=== PATIENT | female | born 1980 | race Hispanic/Latino ===

== ENCOUNTER 2016-08-04 11:22 | Emergency (ER) | payer SELFPAY ==
[2016-08-04] MEDS ORDERED: KETOROLAC TROMETHAMINE 30 MG/ML VIAL ONE (12:06)
[2016-08-04 12:08] LABS: BLOOD UREA NITROGEN 15 mg/dL (7-17); CALCIUM 9.5 mg/dL (8.4-10.2); CHLORIDE 104 mmol/L (98-107); CREATININE 0.9 mg/dL (0.5-1.0); EST GLOMERULAR FILTRATION RATE > 60 mL/min; GLUCOSE 99 mg/dL (70-100); POTASSIUM 4.1 mmol/L (3.5-5.1); SODIUM 143 mmol/L (137-145)
[2016-08-04] MEDS ORDERED: DIPHENHYDRAMINE 50 MG/ML VIAL ONE (12:38)
[2016-08-04 12:47] LABS: BASOPHILS 0.4 % (0.0-2.0); EOSINOPHILS 2.3 % (0.0-6.0); EOSINOPHILS# 0.1 X 10^3uL (0.0-0.4); HEMATOCRIT 47.2 % (36.0-48.0); HEMOGLOBIN 16.2 g/dL (12.0-16.0); LYMPHOCYTES 26.7 % (20.0-40.0); LYMPHOCYTES# 1.6 X 10^3uL (0.8-3.8); MEAN CELL VOLUME 86.5 fL (80.0-100.0); MEAN CORPUS. HGB CONCENTRATION 34.4 g/dL (32.0-36.0); MEAN CORPUSCULAR HEMOGLOBIN 29.8 pg (29.0-35.0); MEAN PLATELET VOLUME 8.1 fL (7.4-10.4); MONOCYTES 6.1 % (2.0-10.0); MONOCYTES# 0.4 X 10^3uL (0.2-1.0); NEUTROPHILS 64.5 % (54.0-75.0); RED BLOOD COUNT 5.46 X 10^6uL (4.20-6.10); RED CELL DISTRIBUTION WIDTH 12.2 % (11.5-14.5); WHITE BLOOD COUNT 6.1 X 10^3uL (3.9-10.7)
[2016-08-04] MEDS ORDERED: ACETAMINOPHEN 1,000 MG/100 ML VIAL IV ONE (14:25)
[2016-08-04] MEDS ORDERED: DEXAMETHASONE 10 MG/ML VIAL ONE (14:25)
--- NOTE | 2016-08-04 16:13 | ER PHYSICIAN DOCUMENTATION ---
Physician Documentation [facility] Name:Ambar Freeman Age:35 yrs Sex:Female :1980 Arrival Date:08/04/2016 Time:11:22 Bed3 Private MD:Puma Morales ED Misbah Scott Disposition: 08/04/16 15:16 Discharged to Home/Self Care. Impression: Cephalgia. - Condition is Good. - Discharge Instructions: HEADACHE, Unspecified. - Medical Reconciliation form form. - Follow up: Puma Morales; When: Tomorrow; Reason: Continuance of care. Follow up: Brian Levy MD; When: Tomorrow; Reason: Continuance of care. - Problem is an ongoing problem. - Symptoms are resolved. HPI: 08/04 15:11 This 35 yrs old Female presents to ER via Private Vehicle with complaints of sc Headache. 15:11 The patient complains of pain to the top of head and forehead. The patient describes sc the headache as aching, constant. Onset: The symptoms/episode began/occurred 10 day(s) ago. Associated signs and symptoms: The patient has no apparent associated signs or symptoms. Severity of symptoms: At its worst the pain was severe, in the emergency department the pain is unchanged. The patient has been recently seen by a physician:. myelogram 10days ago with headache since, blood patch without relief 3 days ago. Historical: - Allergies: Medrol; - Home Meds: 1. Zofran Oral - PMHx: BACK PAIN; - Tetanus: unknown. - Ebola Screening: : Patient negative for fever greater than or equal to 101.5 degrees Fahrenheit, and additional compatible Ebola Virus Disease symptoms. Patient denies exposure to infectious person. Patient denies travel to an Ebola-affected area in the 21 days before illness onset. No symptoms or risks identified at this time. . - Immunization history: Pneumococcal vaccine is not up to date, Patient has never been vaccinated Flu Vaccine None. - Social history: Smoking status: Patient states was never smoker of tobacco. Patient/guardian denies using alcohol, marijuana. ROS: 15:12 Eyes: Negative for injury, pain, redness, and discharge. sc ENT: Negative for injury, pain, and discharge. Cardiovascular: Negative for chest pain, palpitations, and edema. Respiratory: Negative for shortness of breath, cough, wheezing, and pleuritic chest pain. Abdomen/GI: Negative for abdominal pain, nausea, vomiting, diarrhea, and constipation. Back: Negative for injury and pain. MS/Extremity: Negative for injury and deformity. 15:12 Skin: Negative for injury, rash, and discoloration. sc 15:12 Constitutional: Negative for fever. 15:12 Neck: Negative for pain with movement, pain at rest, stiffness. 15:12 Neuro: Positive for headache. Exam: Constitutional: This is a well developed, well nourished patient who is awake, alert, and in no acute distress. Head/Face: Normocephalic, atraumatic. 15:12 Eyes: Pupils equal round and reactive to light, extra-ocular motions intact. Lids and sc lashes normal. Conjunctiva and sclera are non-icteric and not injected. Cornea within normal limits. Periorbital areas with no swelling, redness, or edema. Neck: Trachea midline, no thyromegaly or masses palpated, and no cervical lymphadenopathy. Supple, full range of motion without nuchal rigidity, or vertebral point tenderness. No meningismus. Chest/axilla: Normal chest wall appearance and motion. Nontender with no deformity. No lesions are appreciated. Cardiovascular: Regular rate and rhythm with a normal S1 and S2. No gallops, murmurs, or rubs. Normal PMI, no JVD. No pulse deficits. Respiratory: Lungs have equal breath sounds bilaterally, clear to auscultation and percussion. No rales, rhonchi or wheezes noted. No increased work of breathing, no retractions or nasal flaring. Abdomen/GI: Soft, non-tender, with normal bowel sounds. No distension or tympany. No guarding or rebound. No evidence of tenderness throughout. Back: No spinal tenderness. No costovertebral tenderness. Full range of motion. MS/ Extremity: Pulses equal, no cyanosis. Neurovascular intact. Full, normal range of motion, negative Homans's, calves equal bilaterally. 15:12 Neuro: Awake and alert, GCS 15, oriented to person, place, time, and situation. Cranial nerves II-XII grossly intact. Motor strength 5/5 in all extremities. Sensory grossly intact. Cerebellar exam normal. Normal gait. 15:12 Eyes: Pupils: equal, round, and reactive to light and accomodation. 15:12 Neck: ROM/movement: is normal. Vital Signs: 12:14 BP 117 / 87; Pulse 80; Resp 18; Temp 97.6; Pulse Ox 93% on R/A; Weight 63.5 kg; Height sj 5 ft. 5 in. (165.10 cm); Pain 7/10; 12:18 BP 115 / 80; Pulse 81; Pulse Ox 93% on R/A; Pain 7/10; sj 12:44 BP 117 / 78; Pulse 72; Pulse Ox 86% on R/A; sj 13:34 BP 104 / 79; Pulse 83; Pulse Ox 94% on R/A; Pain 3/10; sj 14:23 BP 127 / 78; Pulse 83; Resp 16; Pulse Ox 93% on R/A; Pain 2/10; sj 16:11 Pulse 84; Pulse Ox 92% on R/A; Pain 0/10; sj 12:14 Body Mass Index 23.30 (63.50 kg, 165.10 cm) Geneva Coma Score: 15:14 Eye Response: spontaneous(4). Verbal Response: oriented(5). Motor Response: obeys sc commands(6). Total: 15. MDM: 12:15 Patient medically screened. ca 15:14 Differential diagnosis: post lumbar puncture headache, tension headache, vasomotor sc headache. Neurological re-evaluation: normal neurological exam including cranial nerves, orientation, mentation, motor and sensory exam, cerebellar testing, GCS normal, and normal gait. Data reviewed: vital signs, nurses notes, old medical records, lab test result(s), and as a result, I will continue to observe the patient, administer IV fluids, administer steroids, prescribe pain medication. Counseling: I had a detailed discussion with the patient and/or guardian regarding: the historical points, exam findings, and any diagnostic results supporting the discharge/admit diagnosis, lab results, the need for outpatient follow up, with the patient's primary care provider. 08/04 12:13 Order name: BASIC METABOLIC PANEL; Complete Time: 12:16 EDMS 08/04 12:16 Interpretation: Normal. ca 08/04 12:48 Order name: CBC AUTO DIF, MDIF/RMOR IF IND; Complete Time: 13:25 EDMS 08/04 13:25 Interpretation: Normal. ca 08/04 12:47 Order name: Oxygen; Complete Time: 12:47 sj Dispensed Medications: 12:10 Drug: Toradol 30 mg; Route: IVP; Site: right wrist; sj 12:20 Follow up: Response: Pain is unchanged, physician notified sj 12:32 Drug: NS 0.9% 1000 ml; Route: IV; Rate: bolus; Site: right wrist; sj 13:02 Follow up: IV Status: Infusion continued; IV Intake: 900ml sj 12:33 Drug: Benadryl 25 mg; Route: IVP; Site: right wrist; sj 13:35 Follow up: Response: Pain is decreased sj 12:43 Drug: Compazine 10 mg; Route: IVPB; Site: right wrist; sj 13:35 Follow up: IV Status: Completed infusion; IV Intake: 250ml sj 13:36 Follow up: Response: Nausea is decreased; Pain is decreased sj 13:00 Drug: NS 0.9% 1000 ml; Route: IV; Rate: bolus; Site: right wrist; sj 14:10 Follow up: Rate change bolus; IV Status: Completed infusion; IV Intake: 1000ml sj 14:20 Drug: Decadron 10 mg IVP - Dexamethasone 10 mg; Route: IVP; Site: right wrist; sj 16:11 Follow up: Response: Pain is decreased sj 14:22 Drug: Ofirmev ; MAX of 1000 mg, give 20 mg/kg; Route: IV; Rate: calculated rate; sj Infused Over: 15 mins; Site: right wrist; 16:10 Follow up: IV Status: Completed infusion; IV Intake: 100ml sj 16:10 Follow up: Response: Pain is decreased Signatures: Misbah Cole MD MD sc Janzen, Sarah
--- NOTE | 2016-08-04 16:13 | ER NURSING DOCUMENTATION ---
Nurse's Notes [facility] Name:Ambar Freeman Age:35 yrs Sex:Female :1980 Arrival Date:08/04/2016 Time:11:22 Bed3 Private MD:Puma Morales Diagnosis:Cephalgia Presentation: 08/04 12:09 Presenting complaint: Patient states: Received a spinal injection for a myelogram on sj 07/25/16. Had a severe headache after. Received a blood patch 07/31/16 but now worse with nausea, vomiting, jaw pain, frontal and occipital pain. Dr. Levy called in a RX for zofran. Continued nausea and headache. Transition of care: Home. 12:09 Acuity: VENKATA 3 sj 12:09 Method Of Arrival: Private Vehicle Triage Assessment: 12:12 Headache History: The patient has had previous headaches and this one is more severe sj than previous episodes. General: Appears distressed, Behavior is cooperative, pleasant. Pain: Complains of pain in frontal, occipital and bilateral jaw Pain currently is 7 out of 10 on a pain scale. Pain began 10 days ago. Neuro: Level of Consciousness is awake, alert, Oriented to person, place, time, event, Marketing Traffic Coordinator are equal bilaterally Moves all extremities. Full function Gait is steady, Speech is normal, Facial symmetry appears normal, Pupils are PERRLA, Denies blurred vision. Cardiovascular: Capillary refill < 3 seconds. Respiratory: Respiratory effort is even, unlabored. 16:09 Pain: Also complains of nausea. sj Historical: - Allergies: Medrol; - Home Meds: 1. Zofran Oral - PMHx: BACK PAIN; - Tetanus: unknown. - Ebola Screening: : Patient negative for fever greater than or equal to 101.5 degrees Fahrenheit, and additional compatible Ebola Virus Disease symptoms. Patient denies exposure to infectious person. Patient denies travel to an Ebola-affected area in the 21 days before illness onset. No symptoms or risks identified at this time. . - Immunization history: Pneumococcal vaccine is not up to date, Patient has never been vaccinated Flu Vaccine None. - Social history: Smoking status: Patient states was never smoker of tobacco. Patient/guardian denies using alcohol, marijuana. Screenin:16 Infectious Disease Risk None. Abuse screen: Denies threats or abuse. Denies injuries sj from another. Nutritional screening: No deficits noted. Assessment: 12:16 Reassessment: No changes from previously documented assessment. Vital Signs: 12:14 BP 117 / 87; Pulse 80; Resp 18; Temp 97.6; Pulse Ox 93% on R/A; Weight 63.5 kg; Height sj 5 ft. 5 in. (165.10 cm); Pain 7/10; 12:18 BP 115 / 80; Pulse 81; Pulse Ox 93% on R/A; Pain 7/10; sj 12:44 BP 117 / 78; Pulse 72; Pulse Ox 86% on R/A; sj 13:34 BP 104 / 79; Pulse 83; Pulse Ox 94% on R/A; Pain 3/10; sj 14:23 BP 127 / 78; Pulse 83; Resp 16; Pulse Ox 93% on R/A; Pain 2/10; sj 16:11 Pulse 84; Pulse Ox 92% on R/A; Pain 0/10; sj 12:14 Body Mass Index 23.30 (63.50 kg, 165.10 cm) Rachna Coma Score: 15:14 Eye Response: spontaneous(4). Verbal Response: oriented(5). Motor Response: obeys sc commands(6). Total: 15. ED Course: 11:25 Patient arrived in ED. lr3 11:26 Puma Morales is Private Physician. lr3 11:[address] Cole notified. sj 11:50 Jennifer Hernandez is Primary Nurse. sj 12:11 Triage completed. sj 12:15 Misbah Cole MD is Attending Physician. sc 12:16 Valuables Given to family. Patient has correct armband on for positive identification. sj Bed in low position. Call light in reach. 12:16 Cool cloth applied. Warm blanket given. sj 12:16 Inserted peripheral IV: 22 gauge in right Wrist. sj 12:30 Pulse Ox - RN Monitoring Only NIBP On - RN Monitoring Only. sj 12:45 Oxygen Oxygen administration via nasal cannula @ 2L/min. sj 12:48 Side rails up X2. sj 15:15 Puma Morales is Referral Physician. sc 15:15 Brian Levy MD is Referral Physician. sc Administered Medications: 12:10 Drug: Toradol 30 mg; Route: IVP; Site: right wrist; sj 12:20 Follow up: Response: Pain is unchanged, physician notified sj 12:32 Drug: NS 0.9% 1000 ml; Route: IV; Rate: bolus; Site: right wrist; sj 13:02 Follow up: IV Status: Infusion continued; IV Intake: 900ml sj 12:33 Drug: Benadryl 25 mg; Route: IVP; Site: right wrist; sj 13:35 Follow up: Response: Pain is decreased sj 12:43 Drug: Compazine 10 mg; Route: IVPB; Site: right wrist; sj 13:35 Follow up: IV Status: Completed infusion; IV Intake: 250ml sj 13:36 Follow up: Response: Nausea is decreased; Pain is decreased sj 13:00 Drug: NS 0.9% 1000 ml; Route: IV; Rate: bolus; Site: right wrist; sj 14:10 Follow up: Rate change bolus; IV Status: Completed infusion; IV Intake: 1000ml sj 14:20 Drug: Decadron 10 mg IVP - Dexamethasone 10 mg; Route: IVP; Site: right wrist; sj 16:11 Follow up: Response: Pain is decreased sj 14:22 Drug: Ofirmev ; MAX of 1000 mg, give 20 mg/kg; Route: IV; Rate: calculated rate; sj Infused Over: 15 mins; Site: right wrist; 16:10 Follow up: IV Status: Completed infusion; IV Intake: 100ml sj 16:10 Follow up: Response: Pain is decreased sj Intake: 13:02 IV: 900ml; Total: 900ml. sj 13:35 IV: 250ml; Total: 1150ml. sj 14:10 IV: 1000ml; Total: 2150ml. sj 16:10 IV: 100ml; Total: 2250ml. Outcome: 15:16 Discharge ordered by . ny 16:07 Discharged to home ambulatory, with family. 16:07 Condition: improved 16:07 Instructed on discharge instructions, follow up and referral plans. Demonstrated understanding of instructions. 16:07 IV D/Ramu 16:12 Patient left the ED. sj 05 09:15 Discharge F/U Call: Spoke with: patient. Are you having any pain? no. lp Signatures: Angelica Hannah RN RN Misbah Leiva MD MD ny Jennifer Hernandez Sahra Ulrich3
== END 2016-08-04 16:12 | disposition home or self-care (01) ==
LOC: ER 11:22
DX: R51 Headache (principal); G97.1 Other reaction to spinal and lumbar puncture
CPT/HCPCS: 80048; 85025; 96361; 96365; 96366; 96367; 96375; 99284; J1100; J1200; J1885